=== PATIENT | female | born 1995 | race Two or more races ===

== ENCOUNTER 2017-07-11 22:53 | Emergency (ER) | payer MEDICAID ==
--- NOTE | 2017-07-11 23:12 | EDM.PDOC ---
ED HPI GENERAL MEDICAL PROBLEM - General Chief Complaint: Lower Extremity Injury/Pain Stated Complaint: RIGHT ANKLE TWISTED Time Seen by Provider: 07/11/17 23:07 Source of Information: Reports: Patient History Limitations: Reports: No Limitations - History of Present Illness INITIAL COMMENTS - FREE TEXT/NARRATIVE: 21-year-old female presents to the ED with an acute injury to her right lateral foot. Patient states she missed a stair and inverted her right ankle 2 hours ago. This occurred inside her home. She states at present she's not able to weight-bear due to severe pain right lateral foot. Last menstrual period was 2 weeks ago. She denies any possibility of . Previous right foot/ankle surgery. Onset: Today Onset Date: 07/11/17 Onset Time: 21:00 Duration: Hour(s): Location: Reports: Lower Extremity, Right (Right lateral foot.) Quality: Reports: Ache, Throbbing Severity: Moderate Improves with: Reports: Rest Worsens with: Reports: Other (An elevation) Context: Reports: Trauma. 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 [No Known Home Meds] 07/11/17 [History] Social & Family History - Living Situation & Occupation Living situation: Reports: Single, with Family Review of Systems - Review of Systems Review Of Systems: See Below Constitutional: Reports: No Symptoms Eyes: Reports: No Symptoms Ears: Reports: No Symptoms Nose: Reports: No Symptoms Mouth/Throat: Reports: No Symptoms Respiratory: Reports: No Symptoms Cardiovascular: Reports: No Symptoms GI/Abdominal: Reports: No Symptoms Genitourinary: Reports: No Symptoms Musculoskeletal: Reports: No Symptoms Skin: Reports: No Symptoms Neurological: Reports: No Symptoms Psychiatric: Reports: No Symptoms ED EXAM, GENERAL - Physical Exam Exam: See Below Exam Limited By: No Limitations General Appearance: Alert, WD/WN, Mild Distress Respiratory/Chest: No Respiratory Distress, Lungs Clear, Normal Breath Sounds, No Accessory Muscle Use, Chest Non-Tender Cardiovascular: Normal Peripheral Pulses, Regular Rate, Rhythm, No Edema, No Gallop, No Murmur, No Rub Extremities: Other (Examination of the right lower extremity shows no pain on palpation of the proximal fibular head. No pain in the ankle and confirmed compression of mid shaft tib-fib. No pain on from compression of the lateral and medial malleoli. There is ecchymoses along the entire lateral aspect of the foot with pain well localized to the fifth metatarsal head.) Neurological: Alert, Oriented, CN II-XII Intact, Normal Cognition. No: Normal Gait Psychiatric: Normal Affect, Anxious Skin Exam: Warm, Dry, Intact, Normal Color, No Rash Course - Vital Signs Last Recorded V/S: Last Vital Signs Temp 37.2 C 07/11/17 23:00 Pulse 78 07/11/17 23:00 Resp 16 07/11/17 23:00 BP 107/57 L 07/11/17 23:00 Pulse Ox 100 07/11/17 23:00 - Orders/Labs/Meds Orders: Active Orders 24 hr Category Date Time Status Foot Comp Min 3V Rt [CR] Stat Exams 07/11/17 23:07 Taken Durable Medical Equipment for Discharge [DME for Oth 07/11/17 23:31 Ordered Discharge] [COMM] Stat - Radiology Interpretation Free Text/Narrative:: 21-year-old female presents the ED for evaluation of acute inversion injury to her right ankle with primary injury to her lateral right foot. She has ecchymoses swelling and point tenderness over the fifth metatarsal head right foot. Plan :3 views of the right foot to be done - Re-Assessments/Exams Free Text/Narrative Re-Assessment/Exam: 07/11/17 23:27 x-rays of the right foot are normal. There is no evidence of a Rangel fracture. Plan Peter wrap nonweightbearing crutch walking for 3-5 days. Elevate foot is much as possible for the next 2 days. Ice pack to the area for one half out of every 4 hours for the next 2 days. Motrin 600 mg every 6 hours as needed for pain relief. Departure - Departure Time of Disposition: 23:31 Disposition: Home, Self-Care 01 Condition: Fair Clinical Impression: Contusion of right foot Qualifiers: Encounter type: initial encounter Qualified Code(s): S90.31XA - Contusion of right foot, initial encounter Sprained ankle Qualifiers: Encounter type: initial encounter Involved ligament of ankle: calcaneofibular ligament Laterality: right Qualified Code(s): S93.411A - Sprain of calcaneofibular ligament of right ankle, initial encounter - Discharge Information Referrals: Milagros Hickey PA-C [Primary Care Provider] - Forms: ED Department Discharge, ED Return to Work/School Form Additional Instructions: Evaluation the emergency room tonight in regards to acute injury to her right lateral foot when you missed the stairs. This resulted in an inversion injury to your right foot and ankle. Suffered a mild sprain of the right lateral ankle but blunt trauma and contusion to the lateral aspect of your right foot. X-rays of the foot and ankle do not reveal any broken bones. Treatment is nonweightbearing crutch walking for the next 4-5 days. Elevate the foot is much as possible for the next 48 hours. Peter wrap on during the day and off at night although it could stay on all night tonight. Ice pack to the area for one half hour out of every 4 hours for the next 2 days. Motrin 6 mg every 6 hours as needed for pain relief. Scheduled for the work place for the next 5 days. - My Orders Last 24 Hours: My Active Orders 07/11/17 23:07 Foot Comp Min 3V Rt [CR] Stat 07/11/17 23:31 Durable Medical Equipment for Discharge [DME for Discharge] [COMM] Stat - Assessment/Plan Last 24 Hours: My Active Orders 07/11/17 23:07 Foot Comp Min 3V Rt [CR] Stat 07/11/17 23:31 Durable Medical Equipment for Discharge [DME for Discharge] [COMM] Stat
--- NOTE | 2017-07-12 06:52 | CR ---
Right foot: Four views of the right foot were obtained. Comparison: No prior foot exam. Joint spaces are preserved. No fracture, dislocation or other bony abnormality is seen. Impression: 1. No abnormality is appreciated on right foot exam. Diagnostic code #1
== END 2017-07-11 23:42 | disposition home or self-care (01) ==
LOC: JD.ED 22:53
DX: S93.411A Sprain of calcaneofibular ligament of right ankle, initial encounter (principal); S90.31XA Contusion of right foot, initial encounter; X50.1XXA Overexertion from prolonged static or awkward postures, initial encounter
CPT/HCPCS: 73630-26-RT; 73630-RT; 99283

== ENCOUNTER 2017-08-26 12:16 | Emergency (ER) | payer BC, MEDICAID ==
--- NOTE | 2017-08-26 13:02 | EDM.PDOC ---
ED HPI GENERAL MEDICAL PROBLEM - General Chief Complaint: ENT Problem Stated Complaint: SORE THROAT Time Seen by Provider: 08/26/17 12:30 Source of Information: Reports: Patient, Family (father) History Limitations: Reports: No Limitations - History of Present Illness INITIAL COMMENTS - FREE TEXT/NARRATIVE: Nancy is a 22yo [id number] here with her father with complaints of sore throat starting yesterday afternoon. She denies f/c/s, no headache, myalgias or cough. Father reports that "strep throat" just went through their household. She was not interested in eating last night. No n/v/d. She is otherwise healthy. Strep screen was obtained. Onset: Sudden Duration: Day(s): (2) Location: Reports: Other (throat and ears) Quality: Reports: Ache Severity: Moderate Improves with: Reports: Rest Worsens with: Reports: Breathing, Eating Context: Reports: Sick Contact (family with + strep in her home) Associated Symptoms: Reports: Loss of Appetite, Malaise. 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 [No Known Home Meds] 07/11/17 [History] Past Medical History - Past Health History Medical/Surgical History: Denies Medical/Surgical History Social & Family History - Family History Family Medical History: Noncontributory - Tobacco Use Smoking Status *Q: Never Smoker - Caffeine Use Caffeine Use: Reports: Soda - Recreational Drug Use Recreational Drug Use: Yes - Living Situation & Occupation Living situation: Reports: Single, with Family ED ROS ENT - Review of Systems Review Of Systems: See Below Constitutional: Reports: Malaise, Fatigue, Decreased Appetite. Denies: Fever, Chills, Weakness HEENT: Reports: Ear Pain (bilat), Throat Pain, Throat Swelling. Denies: Ear Discharge, Rhinitis, Sinus Problem, Vertigo, Vision Change Respiratory: Reports: No Symptoms. Denies: Shortness of Breath, Cough Cardiovascular: Reports: No Symptoms GI/Abdominal: Reports: No Symptoms. Denies: Abdominal Pain, Diarrhea, Nausea Musculoskeletal: Reports: No Symptoms, Other (no myalgias) Skin: Denies: Rash Neurological: Reports: No Symptoms. Denies: Headache ED EXAM, ENT - Physical Exam Exam: See Below Exam Limited By: No Limitations General Appearance: Alert, WD/WN, No Apparent Distress Eye Exam: Bilateral Eye: EOMI, PERRL Ears: Normal External Exam, Normal Canal, Hearing Grossly Normal, Cerumen Impaction (right side; minimal cerumen to left with TM appearing normal), Other (wears hearing aids bilaterally) Nose: Normal Inspection, Normal Mucousa Mouth/Throat: Normal Inspection, Normal Gums, Normal Lips, Normal Teeth, Pharyngeal Erythema. No: Peritonsillar Mass, Throat Swelling, Tonsillar Exudates, Tonsillar Swelling, Uvular Deviation Head: Atraumatic, Normocephalic Neck: Normal Inspection, Supple. No: Lymphadenopathy (L), Lymphadenopathy (R) Respiratory/Chest: No Respiratory Distress, Lungs Clear, Normal Breath Sounds Cardiovascular: Regular Rate, Rhythm, No Edema, No Murmur GI/Abdominal: Normal Bowel Sounds, Soft (Female) Exam: Deferred Rectal (Female) Exam: Deferred Extremities: Normal Inspection Neurological: Alert, Oriented, Normal Cognition Skin: Warm, Dry, Intact Course - Vital Signs Last Recorded V/S: Last Vital Signs Temp 97.8 F 08/26/17 12:21 Pulse 82 08/26/17 12:21 Resp 18 08/26/17 12:21 BP 91/76 08/26/17 12:21 Pulse Ox 97 08/26/17 12:21 - Orders/Labs/Meds Orders: Active Orders 24 hr Category Date Time Status Rapid Strep w/culture conf [STREP SCRN A RAPID W CULT Lab 08/26/17 12:34 Ordered CONF] [RM] Stat Labs: strep screen returned normal - Re-Assessments/Exams Free Text/Narrative Re-Assessment/Exam: 08/26/17 13:06 strep screen is negative Departure - Departure Time of Disposition: 12:57 Disposition: Home, Self-Care 01 Condition: Good Clinical Impression: Pharyngitis Qualifiers: Pharyngitis/tonsillitis etiology: unspecified etiology Qualified Code(s): J02.9 - Acute pharyngitis, unspecified - Discharge Information Instructions: Pharyngitis Referrals: Milagros Hickey PA-C [Primary Care Provider] - Forms: ED Department Discharge Additional Instructions: Your strep screen returned negative; you likely have a viral infection. As the strep screen is negative, antibiotics will not help this infection at this time. Recommend push fluids, plenty of rest. Tylenol or motrin 3 times daily with food for discomfort. Salt water gargles 3 times daily. You can return to ER if worsening or to Clinic early next week if not improved. - My Orders Last 24 Hours: My Active Orders 08/26/17 12:34 Rapid Strep w/culture conf [STREP SCRN A RAPID W CULT CONF] [RM] Stat - Assessment/Plan Last 24 Hours: My Active Orders 08/26/17 12:34 Rapid Strep w/culture conf [STREP SCRN A RAPID W CULT CONF] [RM] Stat
== END 2017-08-26 13:07 | disposition home or self-care (01) ==
LOC: JD.ED 12:16
DX: J02.9 Acute pharyngitis, unspecified (principal)
CPT/HCPCS: 87081; 87430; 99282; 99283

== ENCOUNTER 2025-01-10 15:31 | Emergency (ER) | payer OTHER ==
[2025-01-10] MEDS: Sodium Chloride 0.9% 10 ML Syringe FLUSH PRN (16:19)
[2025-01-10] MEDS: Ondansetron 4 MG/2 ML SDV IVPUSH ONE (16:20)
[2025-01-10 16:40] LABS: BASOPHILS ABSOLUTE AUTO 0.0 K/mm3 (0.0-0.2); BASOPHILS PERCENT AUTO 0.1 % (0.0-1.0); EOSINOPHILS ABSOLUTE AUTO 0.0 K/mm3 (0.0-0.4); EOSINOPHILS PERCENT AUTO 0.0 % (0.0-6.0); IMMATURE GRAN ABSOLUTE AUTO 0.09 K/mm3 (0.00-0.05); IMMATURE GRAN PERCENT AUTO 0.6 % (0.0-0.4); LYMPHOCYTES ABSOLUTE AUTO 0.3 K/mm3 (1.0-4.8); LYMPHOCYTES PERCENT AUTO 2.2 % (24.0-44.0); MEAN PLATELET VOLUME 9.3 fl (9.4-12.3); MONOCYTES ABSOLUTE AUTO 1.1 K/mm3 (0.0-0.8); MONOCYTES PERCENT AUTO 7.0 % (0.0-8.0); NEUTROPHILS ABSOLUTE AUTO 13.9 K/mm3 (1.8-7.7); NEUTROPHILS PERCENT AUTO 90.1 % (41.0-71.0); NRBC ABSOLUTE 0.00 (0.00-0.02); NRBC PERCENT 0.0 % (0.0-0.2); PLATELET COUNT,PLT 328 K/mm3 (150-400); RED BLOOD CELL COUNT 4.41 M/mm3 (4.10-5.30); WHITE BLOOD CELL COUNT,WBC 15.46 K/mm3 (3.9-11.3)
[2025-01-10 16:56] LABS: INR 1.08
[2025-01-10 16:57] LABS: PTT,PARTIAL THROMBOPLSTIN TIME 28.8 SECONDS (21.7-31.4)
[2025-01-10 16:58] LABS: A/G RATIO 0.8 (1-2); ALANINE AMINOTRANSFERASE,ALT 45.0 U/L (14-59); ASPARTATE AMNIOTRANSFERASE,AST 27.0 U/L (15-37); BILIRUBIN TOTAL 1.1 mg/dL (0.2-1.0); BLOOD UREA NITROGEN,BUN 7.0 mg/dL (7-18); CARBON DIOXIDE,CO2 22.0 mEq/L (21-32); CHLORIDE,CL 102.0 mEq/L (98-107); CREATININE 0.8 mg/dL (0.55-1.02); EST CRCL DRUG DOSING (CG) 83.54 mL/min; ESTIMATED GFR 104.0 mL/min (>60); GLUCOSE RANDOM 114.0 mg/dL (70-99); POTASSIUM,K 3.6 mEq/L (3.5-5.1); PROTEIN TOTAL,TP 7.9 g/dl (6.4-8.2); SODIUM,NA 136.0 mEq/L (136-145)
[2025-01-10 17:01] LABS: LACTIC ACID 0.9 mmol/L (0.4-2.0)
[2025-01-10 17:34] LABS: APPEARANCE,URINE CLEAR (Clear); GLUCOSE,URINE NEGATIVE (Negative); OCCULT BLOOD,URINE 2+ (Negative)
[2025-01-10 17:42] LABS: EPITHELIAL CELLS,URINE 0-5 /hpf (0-5)
[2025-01-10] MEDS: Iopamidol 612 MG/ML 100 ML Bottle IVPUSH ONE (17:44)
== END 2025-01-10 19:12 | disposition home or self-care (01) ==
LOC: JD.ED 15:31
DX: N12 Tubulo-interstitial nephritis, not specified as acute or chronic (principal); E86.0 Dehydration
CPT/HCPCS: 36415; 74177; 74177-26; 80053; 81001; 83605; 83690; 84703; 85025; 85610; 85730; 86140; 87040; 87077; 87086; 87088; 87154; 87186; 87428-QW; 96361; 96374; 96375; 99283; 99284-25; A9270-GY; J0696; J2405; J7030; Q9967

== ENCOUNTER 2025-01-12 11:19 | Emergency (ER) | payer OTHER ==
[2025-01-12] MEDS ORDERED: Sodium Chloride 0.9% 10 ML Syringe FLUSH PRN (11:55)
[2025-01-12 12:32] LABS: BASOPHILS ABSOLUTE AUTO 0.0 K/mm3 (0.0-0.2); BASOPHILS PERCENT AUTO 0.4 % (0.0-1.0); EOSINOPHILS ABSOLUTE AUTO 0.0 K/mm3 (0.0-0.4); EOSINOPHILS PERCENT AUTO 0.2 % (0.0-6.0); IMMATURE GRAN ABSOLUTE AUTO 0.03 K/mm3 (0.00-0.05); IMMATURE GRAN PERCENT AUTO 0.4 % (0.0-0.4); LYMPHOCYTES ABSOLUTE AUTO 1.0 K/mm3 (1.0-4.8); LYMPHOCYTES PERCENT AUTO 12.0 % (24.0-44.0); MEAN PLATELET VOLUME 9.2 fl (9.4-12.3); MONOCYTES ABSOLUTE AUTO 0.6 K/mm3 (0.0-0.8); MONOCYTES PERCENT AUTO 7.8 % (0.0-8.0); NEUTROPHILS ABSOLUTE AUTO 6.5 K/mm3 (1.8-7.7); NEUTROPHILS PERCENT AUTO 79.2 % (41.0-71.0); NRBC ABSOLUTE 0.00 (0.00-0.02); NRBC PERCENT 0.0 % (0.0-0.2); PLATELET COUNT,PLT 329 K/mm3 (150-400); RED BLOOD CELL COUNT 4.03 M/mm3 (4.10-5.30); WHITE BLOOD CELL COUNT,WBC 8.23 K/mm3 (3.9-11.3)
[2025-01-12 12:51] LABS: A/G RATIO 0.7 (1-2); ALANINE AMINOTRANSFERASE,ALT 50.0 U/L (14-59); ASPARTATE AMNIOTRANSFERASE,AST 23.0 U/L (15-37); BILIRUBIN TOTAL 0.6 mg/dL (0.2-1.0); BLOOD UREA NITROGEN,BUN 10.0 mg/dL (7-18); CARBON DIOXIDE,CO2 26.0 mEq/L (21-32); CHLORIDE,CL 103.0 mEq/L (98-107); CREATININE 0.8 mg/dL (0.55-1.02); EST CRCL DRUG DOSING (CG) 83.54 mL/min; ESTIMATED GFR 104.0 mL/min (>60); GLUCOSE RANDOM 189.0 mg/dL (70-99); POTASSIUM,K 3.3 mEq/L (3.5-5.1); PROTEIN TOTAL,TP 7.5 g/dl (6.4-8.2); SODIUM,NA 139.0 mEq/L (136-145)
[2025-01-12 12:56] LABS: LACTIC ACID 1.1 mmol/L (0.4-2.0)
[2025-01-12 14:33] LABS: APPEARANCE,URINE CLEAR (Clear); GLUCOSE,URINE TRACE (Negative); OCCULT BLOOD,URINE NEGATIVE (Negative)
[2025-01-12 14:45] LABS: SQUAMOUS EPITHELIAL CELLS,UR 0-5 /hpf (0-5)
== END 2025-01-12 16:10 | disposition home or self-care (01) ==
LOC: JD.ED 11:19
DX: R78.81 Bacteremia (principal); Z87.440 Personal history of urinary (tract) infections
CPT/HCPCS: 36415; 80053; 81001; 83605; 84703; 85025; 87040; 96374; 99283; J0696